=== PATIENT | male | born 1945 | race Caucasian/White ===

== ENCOUNTER → 2018-11-01 | Day surgery (SDC) | payer OTHER, MEDICARE ==
--- NOTE | 2018-11-01 14:00 | RAD REPORT ---
EXAM DESCRIPTION: US - Guided FNA Non Breast - 11/01/2018 10:31 am CLINICAL HISTORY: Left thyroid nodule. COMPARISON: September 18, 2018 ultrasound. TECHNIQUE: The risks, benefits and alternatives to the procedure were explained to the patient and i nformed consent obtained. The skin and subcutaneous tissues were anesthetized lidocaine. Under sonographic guidance, multiple 25-gauge needle passes were obtained into the dominant nodule wi thin the left lobe of thyroid gland. The specimens were given to pathology. The patient experienced no immediate complication. IMPRESSION: Fine-needle aspiration of a left thyroid nodule.
--- NOTE | 2018-11-01 14:02 | RAD REPORT ---
EXAM DESCRIPTION: US - Guided FNA Non Breast - 11/01/2018 10:31 am CLINICAL HISTORY: Right thyroid nodule. COMPARISON: Thyroid ultrasound September 18, 2018. TECHNIQUE: The risks, benefits and alternatives to the procedure were explained to the patient and i nformed consent obtained. The skin and subcutaneous tissues were anesthetized with lidocaine. Under sonographic guidance, multiple 25-gauge needle passes were obtained into the dominant nodule wi thin the right lobe of the thyroid gland. Specimens were given to pathology. The patient experienced no immediate complication. IMPRESSION: Fine-needle aspiration of a dominant nodule within the right lobe of the thyroid gland.
== END ==
LOC: FNA 09:11
PROVIDERS: ATTEND Internal Medicine
PROC: 0G9H3ZX Drainage of Right Thyroid Gland Lobe, Percutaneous Approach, Diagnostic (ICD-10-PCS; principal; 2018-11-01)
PROC: BG44ZZZ Ultrasonography of Thyroid Gland (ICD-10-PCS; 2018-11-01)
DX: E04.0 Nontoxic diffuse goiter (principal)
CPT/HCPCS: 88162